=== PATIENT | male | born 1990 | race Caucasian/White ===

== ENCOUNTER 2016-06-05 07:09 | Emergency (ER) | payer OTHER ==
[2016-06-05 07:14] VITALS: TEMP 97; BMI 17.6
[2016-06-05 07:16] VITALS: BP 129/85
[2016-06-05] MEDS ORDERED: SODIUM CHLORIDE 1,000 ML IV STA ×2 (07:29→08:47)
[2016-06-05] MEDS ORDERED: ZOFRAN 4 MG/2 ML IVP STA (07:46)
[2016-06-05 07:51] LABS: BASOPHILS # (AUTO) 0.1 K/uL (0-0.2); BASOPHILS % (AUTO) 0.3 % (0.0-3.0); EOSINOPHILS # (AUTO) 0.3 K/ul (0.0-0.7); EOSINOPHILS % (AUTO) 1.7 % (0.0-7.0); HEMATOCRIT 47.7 % (42.0-52.0); HEMOGLOBIN 16.9 g/dl (14.0-18.0); IMMATURE GRANULOCYTE % (AUTO) 0.3 % (0.0-5.0); LYMPHOCYTES # (AUTO) 1.1 K/uL (0.60-3.4); LYMPHOCYTES % (AUTO) 7.2 (10.0-50.0); MEAN CORPUSCULAR HGB CONC 35.4 (31.8-35.4); MEAN CORPUSCULAR VOLUME 84.6 fl (80.0-94.0); MONOCYTES # (AUTO) 1.1 K/uL (0.4-2.0); MONOCYTES % (AUTO) 6.9 (0-10); NEUTROPHILS # (AUTO) 12.7 K/ul (2.0-6.9); NEUTROPHILS % (AUTO) 83.6; PLATELET COUNT 245 10^3/uL (140-440); RED BLOOD COUNT 5.64 10^6/ul (4.70-6.10); WHITE BLOOD COUNT 15.21 K/ul (4.2-10.2)
[2016-06-05 08:16] LABS: FLU INTERNAL QC INTERNAL QC VALID; RAPID FLU A NEGATIVE (NEGATIVE); RAPID FLU B NEGATIVE (NEGATIVE)
[2016-06-05 08:17] LABS: ALBUMIN/GLOBULIN RATIO 1.39; ANION GAP 15.8; BILIRUBIN,TOTAL 1.18 mg/dL (0.00-1.20); BUN/CREATININE RATIO 15.04; CALCIUM 10.3 mg/dL (8.2-10.2); CREATININE 1.13 mg/dL (0.60-1.10); POTASSIUM 3.8 mmol/L (3.5-5.1); TOTAL PROTEIN 8.6 g/dL (6.4-8.2)
--- NOTE | 2016-06-05 08:20 | CT ---
EXAM: CT of the abdomen pelvis without contrast History: Abdominal pain. Technique: Multiplanar CT images through the abdomen pelvis were obtained without the administratio n of IV contrast Findings: Lung bases are free of consolidation. No acute osseous abnormalities. No renal stones and no hydronephrosis. A few small hemorrhagic or proteinaceous cysts of the left [place] with the largest measuring 1 cm. No focal liver or splenic lesions. No discrete gallstones i dentified by CT. No peripancreatic inflammation. Adrenal glands are unremarkable. Fluid seen with in the stomach. Nondilated fluid filled loops of small bowel. Fluid is seen throughout the colon. The appendix is normal. Bladder is not well distended. Prostate is not enlarged. No free air. No ascites. Impression: 1. Mild gastroenterocolitis. No bowel obstruction. 2. Small hemorrhagic or proteinaceous cysts within the left kidney.
--- NOTE | 2016-06-05 08:42 | ED.PDOC ---
General ED Provider: Dr. NICOLETTE SKELTON Chief Complaint: Nausea/Vomiting Stated Complaint: ABDOMINAL PAIN Time Seen by Physician: 07:17 (VOMITEX 4 AND DIARRHEA X 5) Mode of Arrival: Walk-In Information Source: Patient Exam Limitations: No limitations Primary Care Provider: KASSANDRA CANCHOLA Nursing and Triage Documentation Reviewed and Agree: Yes (NO BLOOD INVOLVED IN DIARRHEA OR VOMITOUS MATERIAL) GI Complaint Exam - Abdominal Pain Complaint/Exam Onset: Gradual Duration: 1 DAY Symptoms Are: Still present Timing: Intermittent Initial Severity: Mild Current Severity: Mild Location of Pain: Diffuse Character: Reports: Cramping Aggravating: Reports: Food Alleviating: Reports: None Associated Signs and Symptoms: Reports: Nausea, Vomiting, Diarrhea AAA Risk Factors: Reports: None Cardiac Risk Factors: Reports: None Testicular Torsion Risk Factors: Reports: None Surgical Obstruction Risk Factors: Reports: None Related Surgical History: Reports: None Abdominal Findings: Present: None Review of Systems - Review Of Systems Constitutional: Reports: Malaise Eyes: Reports: No symptoms Ears, Nose, Mouth, Throat: Reports: No symptoms Respiratory: Reports: No symptoms Cardiac: Reports: No symptoms GI: Reports: Abdominal pain, Nausea, Vomiting : Reports: No symptoms Musculoskeletal: Reports: No symptoms Skin: Reports: No symptoms Neurological: Reports: No symptoms Endocrine: Reports: No symptoms Hematologic/Lymphatic: Reports: No symptoms All Other Systems: Reviewed and Negative Past Medical History - Past Medical History Previously Healthy: Yes Endocrine: Reports: None Cardiovascular: Reports: None Respiratory: Reports: None Hematological: Reports: None Gastrointestinal: Reports: None Genitourinary: Reports: None Neuro/Psych: Reports: None Musculoskeletal: Reports: None Cancer: Reports: None - Surgical History General Surgical History: Reports: None - Family History Family History: Reports: None - Social History Smoking Status: Never smoker Hx Substance Use: No Alcohol Screening: Occasionally Physical Exam - Physical Exam Appearance: Well-appearing, No pain distress, Well-nourished Eyes: YVROSE, EOMI, Conjunctiva clear ENT: Ears normal, Nose normal, Oropharynx normal Respiratory: Airway patent, Breath sounds clear, Breath sounds equal, Respirations nonlabored Cardiovascular: RRR, Pulses normal, No rub, No murmur GI/: Soft, Nontender, No masses, Bowel sounds normal, No Organomegaly Musculoskeletal: Normal strength, ROM intact, No edema, No calf tenderness Skin: Warm, Dry, Normal color Neurological: Sensation intact, Motor intact, Reflexes intact, Cranial nerves intact, Alert, Oriented Psychiatric: Affect appropriate, Mood appropriate Interpretation - Radiology Interpretation Radiology Interpretation By: Radiologist Radiology Results: No acute changes Critical Care Note - Critical Care Note Total Time (mins): 0 Course - Course Hematology/Chemistry: 06/05/16 07:40 06/05/16 07:40 Orders, Labs, Meds: Lab Review 06/05/16 06/05/16 07:40 07:55 WBC 15.21 H RBC 5.64 Hgb 16.9 Hct 47.7 MCV 84.6 MCH 30.0 MCHC 35.4 RDW Coeff of [place] 11.9 Plt Count 245 Immature Gran % (Auto) 0.3 Neut % (Auto) 83.6 Lymph % (Auto) 7.2 L [place] % (Auto) 6.9 Eos % (Auto) 1.7 Baso % (Auto) 0.3 Immature Gran # (Auto) 0.1 Neut # 12.7 H Lymph # 1.1 [place] # 1.1 Eos # 0.3 Baso # 0.1 Sodium 138 Potassium 3.8 Chloride 102 Carbon Dioxide 24 Anion Gap 15.8 BUN 17 Creatinine 1.13 H Estimated GFR (MDRD) 77.00 BUN/Creatinine Ratio 15.04 Glucose 105 H Lactic Acid 11.7 Calcium 10.3 H Total Bilirubin 1.18 AST 19 ALT 16 Alkaline Phosphatase 68 Total Protein 8.6 H Albumin 5.0 Globulin 3.6 Albumin/Globulin Ratio 1.39 Amylase 80 Lipase 37 Influenza A (Rapid) Negative Influenza B (Rapid) Negative Orders Category Date Time Status ED IV/MEDIPORT/POWERPORT .ONCE EMERGENCY 06/05/16 07:28 Active AMYLASE Stat LAB 06/05/16 07:40 Completed BLOOD CULTURE Stat LAB 06/05/16 07:28 Ordered CBC W/ AUTO DIFF Stat LAB 06/05/16 07:40 Completed COMPREHENSIVE METABOLIC PANEL Stat LAB 06/05/16 07:40 Completed LACTIC ACID Stat LAB 06/05/16 07:40 Completed LIPASE Stat LAB 06/05/16 07:40 Completed MOLECULAR GROUP A STREP Stat LAB 06/05/16 07:55 Results RAPID FLU A/B Stat LAB 06/05/16 07:55 Completed STREP SCREEN Stat LAB 06/05/16 07:55 Results URINALYSIS C & S IF INDICATED Stat LAB 06/05/16 07:27 Uncollected 0.9 % Sodium Chloride [Saline Flush] MEDS 06/05/16 07:28 Active 1 syr IVF PRN PRN Ondansetron HCl/Pf [Zofran 4 mg/2 ml] MEDS 06/05/16 07:46 Discontinued 4 mg IVP ONCE STA Sodium Chloride 0.9% [Sodium Chloride] 1,000 ml MEDS 06/05/16 07:[address] ABDOMEN/PELVIS WO CONTRAST Stat RADS 06/05/16 07:27 Completed Medications Generic Name Dose Route Start Last Admin Trade Name Freq PRN Reason Stop Dose Admin Sodium Chloride 1 syr 06/05/16 07:28 06/05/16 07:53 Saline Flush IVF 1 syr PRN PRN Administration To flush IV Discontinued Medications Generic Name Dose Route Start Last Admin Trade Name Freq PRN Reason Stop Dose Admin Sodium Chloride 1,000 mls @ 1,000 mls/hr 06/05/16 07:29 06/05/16 07:37 Sodium Chloride IV 06/05/16 08:28 1,000 mls/hr BOLUS STA Administration Ondansetron HCl 4 mg 06/05/16 07:46 06/05/16 07:52 Zofran 4 Mg/2 Ml IVP 06/05/16 07:47 4 mg ONCE STA Administration Vital Signs: Temp Pulse Resp BP Pulse Ox 06/05/16 07:10 97.0 F L 128 H 24 129/85 98 Departure - Departure Time of Disposition: 10:00 Disposition: HOME SELF-CARE Discharge Problem: Nausea, Vomiting, Acute gastroenteritis Instructions: Gastroenteritis (ED), Acute Nausea and Vomiting (ED) Condition: Good Pt referred to PMD for follow-up: No Additional Instructions: Please call your Family Physician as soon as possible to schedule a follow-up appointment. Allergies/Adverse Reactions: Allergies Penicillins Adverse Reaction (Verified 06/05/16 07:15) Home Medications: Ambulatory Orders 1 [No Reported Medications] 06/05/16
== END 2016-06-05 09:17 | disposition home or self-care (01) ==
LOC: ED 07:09
DX: K52.9 Noninfective gastroenteritis and colitis, unspecified (principal)
CPT/HCPCS: 36415; 80053; 82150; 83605; 83690; 85025; 87040; 87651; 87804; 87880; 96361; 96374; 99283